=== PATIENT | female | born 1935 ===

== ENCOUNTER 2021-10-04 08:34 | Inpatient (IN) | payer MEDICARE, BC ==
[2021-10-04 09:18] LABS: #Monocytes 0.4 10x3/uL (0.0-1.1); #Neutrophils 8.4 10x3/uL (1.5-8.4); %Basophils 0.2 % (0.0-2.0); %Lymphocytes 11.4 % (18.0-47.0); %Monocytes 4.1 % (0.0-10.0); %Neutrophils 83.9 % (40.0-75.0); Hemoglobin 12.6 g/dL (12.0-15.5); Mean Corpuscular HGB CONC 33.5 g/dL (32.0-36.0); Mean Corpuscular Hemoglobin 29.4 pg (27.0-33.0); Mean Corpuscular Volume 87.6 fl (81.6-98.3); Mean Platelet Volume 11.1 fl (7.4-10.4); Platelet Count 282 10x3/uL (150-450); RBC Distribution Width 13.4 % (11.5-14.5); Red Blood Cell (RBC) Count 4.29 10x6/uL (3.90-5.03)
[2021-10-04 09:37] LABS: ALT (SGPT) 15 U/L (8-55); AST (SGOT) 23 U/L (5-34); Albumin 4.6 g/dL (3.4-4.8); Alkaline Phosphatase 65 U/L (40-110); Anion Gap 16 mmol/L (10-20); BUN (Urea Nitrogen) 16 mg/dL (9.8-20.1); Bilirubin, Total 1.1 mg/dL (0.2-1.2); Calc. Creatinine Clearance 0 mL/min (70-130); Carbon Dioxide 31 mmol/L (23-31); Chloride 94 mmol/L (98-107); Globulin 2.4 g/dL (2.4-3.5); Glucose 133 mg/dL (83-110); Lipase 192 U/L (8-78); Potassium 3.1 mmol/L (3.5-5.1); Sodium 138 mmol/L (136-145)
[2021-10-04] MEDS ORDERED: Ondansetron PF 4 MG/2 ML Vial ONE (09:46)
[2021-10-04 12:09] LABS: Lactic Acid 2.2 mmol/L (0.5-2.2)
[2021-10-04 12:11] LABS: Bilirubin Neg (Negative); Blood, Urine 10 (Negative); Clarity Clear (Clear); Glucose, Urine (Dipstick) Normal (Negative); Ketone, Urine 5 mg/dL (Negative); Leukocyte Negative (Negative); Nitrite Negative (Negative); Protein, Urine (Dipstick) 15 mg/dl (Neg-Trace); Urobilinogen Normal mg/dL (Less than 2)
[2021-10-04 12:19] LABS: RBC/HPF 0-3 HPF (0-3); Squamous Epithelial None Seen HPF (0-3); WBC/HPF None Seen HPF (0-3)
[2021-10-04 12:20] LABS: Bacteria/HPF Rare-Few HPF (None Seen)
[2021-10-04 15:43] VITALS: BMI 22.8
[2021-10-04] MEDS ORDERED: hydrALAZINE 20 MG/ML VIAL SLOW IVP PRN (16:54)
[2021-10-04] MEDS ORDERED: Ketorolac Tromethamine 30 MG/ML VIAL IVP PRN (16:55)
[2021-10-04] MEDS ORDERED: Ondansetron PF 4 MG/2 ML Vial IVP PRN (16:55)
[2021-10-04] MEDS ORDERED: Simethicone Chewable 80 MG TAB PO PRN (16:58)
[2021-10-04] MEDS ORDERED: Electrolyte Replacement Protocol 1 EACH FS SCH (17:00)
[2021-10-04] MEDS ORDERED: Morphine 4 MG/ML VIAL SLOW IVP PRN (18:19)
[2021-10-04] MEDS: 1/2 NS w/KCL 20 mEq 1,000 ML IV SCH (18:35)
[2021-10-04] MEDS ORDERED: Apixaban 2.5 MG TAB PO SCH (21:00)
[2021-10-04] MEDS ORDERED: Potassium Chloride 20 MEQ TAB PO SCH (21:15)
[2021-10-05] MEDS ORDERED: 1/2 NS w/KCL 20 mEq 1,000 ML ONE (02:56)
[2021-10-05 04:06] LABS: Lactic Acid 0.8 mmol/L (0.5-2.2)
[2021-10-05 04:08] LABS: #Basophils 0.1 10x3/uL (0.0-0.2); #Monocytes 0.9 10x3/uL (0.0-1.1); #Neutrophils 7.3 10x3/uL (1.5-8.4); %Basophils 0.5 % (0.0-2.0); %Eosinophils 0.4 % (0.0-6.0); %Monocytes 7.8 % (0.0-10.0); %Neutrophils 63.9 % (40.0-75.0); Hemoglobin 11.3 g/dL (12.0-15.5); Mean Corpuscular HGB CONC 32.9 g/dL (32.0-36.0); Mean Platelet Volume 10.3 fl (7.4-10.4); Platelet Count 232 10x3/uL (150-450); RBC Distribution Width 13.6 % (11.5-14.5); Red Blood Cell (RBC) Count 3.77 10x6/uL (3.90-5.03); White Blood Cell (WBC) Count 11.4 10x3/uL (3.5-10.5)
[2021-10-05 04:12] LABS: ALT (SGPT) 10 U/L (8-55); AST (SGOT) 19 U/L (5-34); Albumin 3.5 g/dL (3.4-4.8); Alkaline Phosphatase 44 U/L (40-110); Anion Gap 8 mmol/L (10-20); BUN (Urea Nitrogen) 15 mg/dL (9.8-20.1); Bilirubin, Total 0.8 mg/dL (0.2-1.2); Calc. Creatinine Clearance 71 mL/min (70-130); Calcium 8.6 mg/dL (7.8-10.44); Carbon Dioxide 28 mmol/L (23-31); Cardiac Risk 2.6 (Less than 4.5); Chloride 104 mmol/L (98-107); Cholesterol 161 mg/dl (< 200 Desired); Globulin 1.8 g/dL (2.4-3.5); Glucose 90 mg/dL (83-110); HDL Cholesterol 63 mg/dL (>60 Neg Risk); LDL Cholesterol, Calculated 88 mg/dL; Lipase 49 U/L (8-78); Protein, Total 5.3 g/dL (5.8-8.1); Sodium 137 mmol/L (136-145); Triglycerides 50 mg/dL (Less than 150)
[2021-10-05 04:17] LABS: Potassium 2.9 mmol/L (3.5-5.1)
[2021-10-05] MEDS ORDERED: Magnesium 2 GM/50 ML 2 GM in Premix Bag 1 BAG IVPB SCH (04:30)
[2021-10-05] MEDS: 1/2 NS w/KCL 20 mEq 1,000 ML IV SCH ×3 (04:30→17:09)
[2021-10-05] MEDS ORDERED: Potassium Chloride 20 MEQ TAB PO SCH (04:30)
[2021-10-05] MEDS: Potassium Chloride 20 MEQ in Premix Bag 1 BAG IVPB SCH ×2 (05:32→07:54)
[2021-10-05] MEDS: Levothyroxine Sodium 112 MCG TAB PO SCH (05:33)
[2021-10-05] MEDS ORDERED: Pantoprazole 40 MG VIAL IVP SCH (09:00)
[2021-10-05] MEDS ORDERED: Hydrochlorothiazide 25 MG TAB PO SCH (09:00)
[2021-10-05] MEDS ORDERED: Polyethylene Glycol 3350 17 GM Packet PO SCH (09:00)
[2021-10-05] MEDS ORDERED: Losartan Potassium 50 MG TAB PO SCH (09:00)
[2021-10-05] MEDS: Docusate 100 MG CAP PO SCH (10:07)
[2021-10-05] MEDS: Digoxin 0.125 MG TAB PO SCH (10:08)
[2021-10-05] MEDS: Apixaban 2.5 MG TAB PO SCH ×2 (10:08→21:24)
[2021-10-05 13:16] LABS: Anion Gap 13 mmol/L (10-20); BUN (Urea Nitrogen) 12 mg/dL (9.8-20.1); Calc. Creatinine Clearance 74 mL/min (70-130); Calcium 8.6 mg/dL (7.8-10.44); Carbon Dioxide 21 mmol/L (23-31); Chloride 109 mmol/L (98-107); Glucose 87 mg/dL (83-110); Sodium 139 mmol/L (136-145)
[2021-10-05 14:57] LABS: Potassium 4.2 mmol/L (3.5-5.1)
[2021-10-06] MEDS: 1/2 NS w/KCL 20 mEq 1,000 ML IV SCH ×3 (03:00→17:56)
[2021-10-06 05:13] LABS: #Eosinphils 0.1 10x3/uL (0.0-0.5); #Monocytes 0.5 10x3/uL (0.0-1.1); #Neutrophils 5.1 10x3/uL (1.5-8.4); %Basophils 0.5 % (0.0-2.0); %Eosinophils 1.1 % (0.0-6.0); %Lymphocytes 31.7 % (18.0-47.0); %Neutrophils 60.3 % (40.0-75.0); Hemoglobin 11.6 g/dL (12.0-15.5); Mean Corpuscular HGB CONC 31.6 g/dL (32.0-36.0); Mean Corpuscular Hemoglobin 28.9 pg (27.0-33.0); Mean Corpuscular Volume 91.3 fl (81.6-98.3); Mean Platelet Volume 9.8 fl (7.4-10.4); Platelet Count 218 10x3/uL (150-450); RBC Distribution Width 13.2 % (11.5-14.5); Red Blood Cell (RBC) Count 4.02 10x6/uL (3.90-5.03); White Blood Cell (WBC) Count 8.4 10x3/uL (3.5-10.5)
[2021-10-06 05:31] LABS: ALT (SGPT) 11 U/L (8-55); AST (SGOT) 20 U/L (5-34); Albumin 3.5 g/dL (3.4-4.8); Alkaline Phosphatase 52 U/L (40-110); Anion Gap 11 mmol/L (10-20); BUN (Urea Nitrogen) 13 mg/dL (9.8-20.1); Calc. Creatinine Clearance 69 mL/min (70-130); Calcium 8.5 mg/dL (7.8-10.44); Carbon Dioxide 26 mmol/L (23-31); Chloride 105 mmol/L (98-107); Globulin 1.9 g/dL (2.4-3.5); Glucose 85 mg/dL (83-110); Magnesium 1.8 mg/dL (1.6-2.6); Potassium 3.8 mmol/L (3.5-5.1); Protein, Total 5.4 g/dL (5.8-8.1); Sodium 138 mmol/L (136-145)
[2021-10-06] MEDS ORDERED: Magnesium 2 GM/50 ML 2 GM in Premix Bag 1 BAG IVPB SCH (06:00)
[2021-10-06] MEDS: Levothyroxine Sodium 112 MCG TAB PO SCH (07:00)
[2021-10-06] MEDS ORDERED: Ondansetron PF 4 MG/2 ML Vial IVP SCH (09:00)
[2021-10-06] MEDS: Docusate 100 MG CAP PO SCH (09:33)
[2021-10-06] MEDS: Polyethylene Glycol 3350 17 GM Packet PO SCH ×2 (09:33→21:05)
[2021-10-06] MEDS: Pantoprazole 40 MG VIAL IVP SCH ×2 (09:36→21:05)
[2021-10-06] MEDS: Digoxin 0.125 MG TAB PO SCH (09:36)
[2021-10-06] MEDS: Ondansetron HCl/PF 8 MG, Admixture Fee 1 EACH in Sodium Chloride 0.9% 50 ML IVPB SCH ×2 (09:37→21:05)
[2021-10-06] MEDS ORDERED: PROPOFOL 20 ML ONE (10:57)
[2021-10-06] MEDS ORDERED: Lidocaine 1% PF 5 ML VIAL ONE (10:58)
[2021-10-06] MEDS ORDERED: Ondansetron PF 4 MG/2 ML Vial ONE (10:58)
[2021-10-06] MEDS ORDERED: Succinylcholine 200 MG/10 ml SYRINGE FS ONE (11:02)
[2021-10-06 13:56] LABS: Digoxin 0.47 ng/mL (0.8-2.0)
[2021-10-07 05:00] LABS: Magnesium 1.9 mg/dL (1.6-2.6)
[2021-10-07] MEDS ORDERED: 1/2 NS w/KCL 20 mEq 1,000 ML ONE (05:19)
[2021-10-07] MEDS: 1/2 NS w/KCL 20 mEq 1,000 ML IV SCH (05:22)
[2021-10-07] MEDS ORDERED: Magnesium 2 GM/50 ML 2 GM in Premix Bag 1 BAG IVPB SCH (06:00)
[2021-10-07] MEDS: Levothyroxine Sodium 112 MCG TAB PO SCH (07:00)
[2021-10-07] MEDS: Polyethylene Glycol 3350 17 GM Packet PO SCH ×2 (08:24→20:33)
[2021-10-07] MEDS: Pantoprazole 40 MG VIAL IVP SCH ×2 (08:24→20:33)
[2021-10-07] MEDS: Digoxin 0.125 MG TAB PO SCH (08:24)
[2021-10-07] MEDS: Docusate 100 MG CAP PO SCH (08:24)
[2021-10-07] MEDS: Ondansetron HCl/PF 8 MG, Admixture Fee 1 EACH in Sodium Chloride 0.9% 50 ML IVPB SCH (09:00)
[2021-10-07] MEDS ORDERED: Ondansetron HCl/PF 8 MG, Admixture Fee 1 EACH in Sodium Chloride 0.9% 50 ML IVPB PRN (09:50)
[2021-10-07] MEDS: Apixaban 2.5 MG TAB PO SCH ×2 (16:23→20:33)
[2021-10-08 04:21] LABS: Magnesium 1.7 mg/dL (1.6-2.6)
[2021-10-08] MEDS: Levothyroxine Sodium 112 MCG TAB PO SCH (06:09)
[2021-10-08] MEDS: Polyethylene Glycol 3350 17 GM Packet PO SCH (09:22)
[2021-10-08] MEDS: Docusate 100 MG CAP PO SCH (09:22)
[2021-10-08] MEDS: Pantoprazole 40 MG VIAL IVP SCH (09:22)
[2021-10-08] MEDS: Digoxin 0.125 MG TAB PO SCH (09:22)
[2021-10-08] MEDS: Apixaban 2.5 MG TAB PO SCH (11:59)
[2021-10-08] MEDS ORDERED: Magnesium 2 GM/50 ML 2 GM in Premix Bag 1 BAG IVPB SCH (12:00)
[2021-10-08 12:26] VITALS: BP 128/73; TEMP 97.8
== END 2021-10-08 15:00 | disposition home health service (06) | DRG 394 ==
LOC: CSHERS 08:34 → CSHTELE 14:39
PROVIDERS: ADMIT Internal Medicine; ATTEND Physician Assistant
PROC: 0DJ08ZZ Inspection of Upper Intestinal Tract, Via Natural or Artificial Opening Endoscopic (ICD-10-PCS; principal; 2021-10-06)
DX: K43.9 Ventral hernia without obstruction or gangrene (principal); I48.20 Chronic atrial fibrillation, unspecified; K22.10 Ulcer of esophagus without bleeding; K31.1 Adult hypertrophic pyloric stenosis; I10 Essential (primary) hypertension; Z79.02 Long term (current) use of antithrombotics/antiplatelets; K59.09 Other constipation; M54.50 Low back pain, unspecified; E87.6 Hypokalemia; R91.1 Solitary pulmonary nodule; R33.9 Retention of urine, unspecified; K21.00 Gastro-esophageal reflux disease with esophagitis, without bleeding; E03.9 Hypothyroidism, unspecified; K40.90 Unilateral inguinal hernia, without obstruction or gangrene, not specified as recurrent; K57.10 Diverticulosis of small intestine without perforation or abscess without bleeding; G89.29 Other chronic pain; K44.9 Diaphragmatic hernia without obstruction or gangrene; E89.0 Postprocedural hypothyroidism; E78.5 Hyperlipidemia, unspecified; K31.89 Other diseases of stomach and duodenum; Z79.891 Long term (current) use of opiate analgesic; Z79.890 Hormone replacement therapy; Z79.899 Other long term (current) drug therapy; Z90.49 Acquired absence of other specified parts of digestive tract
CPT/HCPCS: 36415; 51701; 74177; 80053; 80061; 80162; 81003; 81015; 83605; 83690; 83735; 84443; 84484; 85025; 93005; 94760; 96374; C9113; J1885; J2405; J2704; J3475; J3480